=== PATIENT | female | born 1940 | race Caucasian/White ===

== ENCOUNTER 2024-07-10 10:51 | Emergency (ER) | payer OTHER ==
[2024-07-10] VITALS (8 sets, daily range): BP systolic 162–182; BP diastolic 67–87
[~2024-07-10] VITALS: Ht 152.4 cm; Wt 56.6 kg
[2024-07-10] MEDS ORDERED: traMADol HCL 50 MG/TAB PO ONE (12:05)
[2024-07-10] MEDS ORDERED: METHOCARBAMOL 500 MG/TAB PO ONE (13:45)
[2024-07-10] MEDS ORDERED: TRAMADOL HYDROC50 M1 PO (14:43)
[2024-07-10] MEDS ORDERED: METHOCARBAMOL500 MG PO (14:43)
== END 2024-07-10 15:01 | disposition home or self-care (01) | DRG 556 ==
LOC: ED 10:51
DX: M25.552 Pain in left hip (principal); M54.32 Sciatica, left side